=== PATIENT | male | born 1990 | race Caucasian/White ===

== ENCOUNTER → 2021-01-03 10:04 | Outpatient (CLI) | payer OTHER, MEDICAID, SELFPAY ==
[2021-01-03 11:48] LABS: COVID19 -Nasal RAPID Negative (Negative)
== END ==
PROVIDERS: PCP Student in an Organized Health Care Education/Training Program; Referring Provider Nurse Practitioner Family; Visit Provider Nurse Practitioner Family
DX: Z20.822 Contact with and (suspected) exposure to COVID-19 (principal); R05.9 Cough, unspecified
CPT/HCPCS: 87635

== ENCOUNTER 2023-12-25 12:55 | Emergency (ER) | payer SELFPAY ==
[2023-12-25] VITALS (9 sets, daily range): BP systolic 135–156; BP diastolic 74–85; PULSE 90–107; RESP 16–18; TEMP 36.6; O2SAT 96–99
[2023-12-25 14:09] LABS: Add Manual Diff / Slide Review NO; Basophils Absolute Auto 0 /uL (0-100); Basophils Percent Auto 0.6 % (0-2); Eosinophils Absolute Auto 0 /uL (0-450); Eosinophils Percent Auto 0.4 % (2-4); Hematocrit 39.5 % (41-53); Hemoglobin 13.4 g/dL (13.5-17.5); Lymphocytes Absolute Auto 1500 /uL (1100-4500); Lymphocytes Percent Auto 18.8 % (25-40); Mean Corpuscular HGB Conc 33.9 % (30-36); Mean Corpuscular Hemoglobin 33.2 PG (26-34); Mean Corpuscular Volume 97.9 fL (80-100); Monocytes Absolute Auto 600 /uL (0-900); Neutrophils Absolute Auto 5600 /uL (1500-7000); Neutrophils Percent Auto 72.2 % (50-75); Platelet Count 152 X10^3/uL (150-400); Red Blood Cell Count 4.04 X10^6/uL (4.5-5.9); Red Cell Distribution Width 12.9 % (11.6-14.8); White Blood Cell Count 7.7 X10^3/uL (4.5-11.0)
[2023-12-25 14:15] LABS: Alanine Aminotransferase 102 IU/L (<50); Albumin 3.8 g/dL (3.5-5.0); Albumin Globulin Ratio 0.8 (1.0-2.8); Alkaline Phosphatase 300 U/L (38-126); Aspartate Aminotransferase 272 IU/L (17-59); BUN Creatinine Ratio 8.5 (6-22); Bilirubin Total 4.9 mg/dL (0.2-1.3); Blood Urea Nitrogen 4 mg/dL (9-20); Calcium 8.6 mg/dL (8.4-10.2); Carbon Dioxide 25 mmol/L (22-32); Chloride 98 mmol/L (98-107); Estimated Glomerular Filt Rate > 60 mL/min (>60); Globulin 4.8 g/dL (1.7-4.1); Glucose 96 mg/dL (70-100); HEMOLYSIS < 15 (0-50); Lipase 68 U/L (23-300); Potassium 3.2 mmol/L (3.4-5.1); Sodium 136 mmol/L (137-145); Total Protein 8.6 g/dL (6.3-8.2)
--- NOTE | 2023-12-25 14:16 | ED.ABDPAIN ---
HPI - Abdominal Pain General Chief Complaint: Abdominal Pain Stated Complaint: Back Pain, Diff. Eliminating Time Seen by Provider: 12/25/23 14:16 Source: patient Mode of arrival: Ambulatory History of Present Illness HPI narrative: Patient is a 33-year-old male history of alcohol abuse comes into the ED from home for evaluation of multiple complaints. States that approximately 4 weeks ago he was lifting something heavy and felt like he strained/sprain his low back. Denies any bowel or urinary incontinence denies any numbness weakness tingling down bilateral lower extremities, denies any saddle paresthesias. States that he also feels like he is distended has had the increased bowel movements secondary to pain. He also states that he has been drinking alcohol daily and is been trying to stop over the past year. He denies any trauma or falls. States that he did drink a shot of liquor earlier today. No other symptoms at this time Related Data Previous Rx's Medication Instructions Recorded albuterol sulfate 90 mcg/actuation 1 puff inhalation Q6H PRN 12/19/20 aerosol inhaler shortness of breath or wheezing #8.5 grams hydroxyzine HCl 25 mg tablet 25 mg PO BID PRN anxiety #30 tabs 12/19/20 albuterol sulfate 90 mcg/actuation 2 puff inhalation Q6H PRN 01/03/21 aerosol inhaler shortness of breath or wheezing #6.7 grams benzonatate 100 mg capsule 100 mg PO BID PRN cough #20 caps 01/03/21 (Tesjames Scott) chlordiazepoxide HCl 25 mg capsule See Rx Instructions .Route 12/25/23 .COMPLEX PRN alcohol withdrawal 4 days #15 caps polyethylene glycol 3350 17 4 g PO DAILY 7 days #119 grams 12/25/23 gram/dose oral powder (Miralax) Allergies Allergy/AdvReac Type Severity Reaction Status Date / Time No Known Drug Allergies Allergy Unverified 12/25/23 13:15 Review of Systems Review of Systems Narrative: General: Denies fever, chills, weight loss HEENT: Denies headache, eye drainage, eye irritation, head trauma, sore throat, voice change Cardiovascular: Denies any chest pain, palpitations, shortness of breath, tachycardia Respiratory: Denies any shortness of breath, cough, wheeze, stridor GI/: Positive abdominal pain, denies nausea, vomiting, diarrhea, bright red blood per rectum, melanotic stools, urinary frequency, urinary retention, dysuria, hematuria MSK: Positive low back pain Skin: Denies any rashes, lesions, discoloration Neuro: Denies any headache, lightheadedness, dizziness, fainting, weakness Psych: Denies SI/HI Patient History Medical History (Updated 12/25/23 @ 16:56 by Terrell Godinez DO) PTSD (post-traumatic stress disorder) Migraines (~2019) Social History Smoking Status: Never smoker Smoking Status: Never smoker alcohol intake frequency: 3 or more drinks per day Alcohol type: hard liquor Substance Use Type: marijuana Exam Narrative Exam Narrative: General: Cooperative, comfortable, well-developed, not in acute distress HEENT: Normocephalic, atraumatic, PERRLA, normal sclera, eyelids normal, Neck: Active full range of motion, atraumatic Chest: Normal to inspection, negative crepitus, no overlying erythema ecchymosis Respiratory: Normal respiratory effort, not in acute respiratory distress, clear to auscultation bilaterally negative cough, wheeze, tachypnea, rhonchi, rales Cardiology: Regular rate rhythm negative gallop, murmur, rubs GI/: Normal to inspection, soft, nonrigid, no tenderness to palpation, exam deferred MSK: Full range of active range of motion of all 4 extremities, atraumatic, patient with mild tenderness to palpation of the coccyx region but no overlying erythema ecchymosis gross deformities, Skin: No rashes lesions noted Neuro: Alert awake oriented x3, moves all 4 extremities spontaneously, cranial nerves intact, able to answer all questions appropriately follows commands appropriately, patient able to stand bear weight ambulate slowed but unassisted here secondary to pain. Psych: Cooperative, negative suicidal or homicidal ideations Initial Vital Signs Initial Vital Signs: Vital Signs Temperature 98 F 12/25/23 13:08 Pulse Rate 97 H 12/25/23 13:08 Respiratory Rate 16 12/25/23 13:08 Blood Pressure 156/85 H 12/25/23 13:08 Pulse Oximetry 99 12/25/23 13:08 Oxygen Delivery Method Room Air 12/25/23 13:08 Course Orders Ordered: ED Orders 12/25/23 13:15 EKG-12 Lead Stat 12/25/23 13:16 Consult to PROSTHODONTIST/OWNER - Truck [employer] Mechanic Stat 12/25/23 13:43 Complete Blood Count AUTO DIFF Stat Comprehensive Metabolic Panel Stat Lipase Stat 12/25/23 14:37 CT abdomen pelvis w con Stat Ondansetron HCl (Ondansetron 4 Mg/2 Ml Inj) 4 mg IV NOW PRN PRN Reason: Nausea And Vomiting Ondansetron HCl (Ondansetron 4 Mg Odt) 4 mg PO NOW PRN PRN Reason: Nausea And Vomiting Discontinued Medications Dexamethasone (Dexamethasone 10 Mg/Ml Vial) 10 mg IV NOW ONE Stop: 12/25/23 14:38 Last Admin: 12/25/23 14:49 Dose: 10 mg Documented By: ETRE Diazepam (Diazepam 10 Mg/2 Ml Syringe) 2 mg IV NOW ONE Stop: 12/25/23 14:38 Last Admin: 12/25/23 14:49 Dose: 2 mg Documented By: TERE Sodium Chloride (Normal Saline 0.9%) 1,000 mls @ 1,000 mls/hr IV BOLUS ONE Stop: 12/25/23 15:50 Last Infusion: 12/25/23 16:31 Dose: Infused Documented By: Admin: 12/25/23 15:11 Dose: 1,000 mls/hr Documented By: TERE Ketorolac Tromethamine (Ketorolac 30 Mg/Ml Vial) 30 mg IV NOW ONE Stop: 12/25/23 14:38 Last Admin: 12/25/23 14:50 Dose: 30 mg Documented By: TERE Vital Signs Vital signs: Vital Signs - 8 hr 12/25/23 13:08 12/25/23 14:58 12/25/23 15:00 Temperature 98 F Pulse Rate 97 H 104 H 107 H Respiratory Rate 16 Blood Pressure 156/85 H Pulse Oximetry 99 96 97 Oxygen Delivery Method Room Air 12/25/23 15:03 12/25/23 15:03 12/25/23 15:25 Temperature Pulse Rate 103 H 96 H Respiratory Rate 18 Blood Pressure 138/80 Pulse Oximetry 96 96 Oxygen Delivery Method 12/25/23 15:25 12/25/23 15:30 12/25/23 15:30 Temperature Pulse Rate 95 H Respiratory Rate 16 Blood Pressure 141/81 H 135/74 Pulse Oximetry 96 Oxygen Delivery Method 12/25/23 16:06 12/25/23 16:06 12/25/23 16:30 Temperature Pulse Rate 90 Respiratory Rate Blood Pressure 143/74 H 141/76 H Pulse Oximetry 97 Oxygen Delivery Method 12/25/23 16:30 Temperature Pulse Rate 92 H Respiratory Rate Blood Pressure Pulse Oximetry 97 Oxygen Delivery Method MDM - Abdominal Pain Differential Diagnosis Differential diagnosis: Likely abdominal pain, constipation, diverticulitis, small bowel obstruction and other (Electrolyte abnormality) Lab Data 12/25/23 13:43 12/25/23 13:43 Labs: Lab Results 12/25/23 Range/Units 13:43 WBC 7.7 (4.5-11.0) X10^3/uL RBC 4.04 L (4.5-5.9) X10^6/uL Hgb 13.4 L (13.5-17.5) g/dL Hct 39.5 L (41-53) % MCV 97.9 (80-100) fL MCH 33.2 (26-34) PG MCHC 33.9 (30-36) % RDW 12.9 (11.6-14.8) % Plt Count 152 (150-400) X10^3/uL Neut % (Auto) 72.2 (50-75) % Lymph % (Auto) 18.8 L (25-40) % [place] % (Auto) 8.0 (3-14) % Eos % (Auto) 0.4 L (2-4) % Baso % (Auto) 0.6 (0-2) % Neut # (Auto) 5600 (0056-0726) /uL Lymph # (Auto) 1500 (2912-3120) /uL [place] # (Auto) 600 (0-900) /uL Eos # (Auto) 0 (0-450) /uL Baso # (Auto) 0 (0-100) /uL Sodium 136 L (137-145) mmol/L Potassium 3.2 L (3.4-5.1) mmol/L Chloride 98 (98-107) mmol/L Carbon Dioxide 25 (22-32) mmol/L BUN 4 L (9-20) mg/dL Creatinine 0.47 L (0.66-1.25) mg/dL Estimated GFR > 60 (>60) mL/min BUN/Creatinine Ratio 8.5 (6-22) Glucose 96 (70-100) mg/dL Calcium 8.6 (8.4-10.2) mg/dL Total Bilirubin 4.9 H (0.2-1.3) mg/dL AST 272 H (17-59) IU/L ALT 102 H (<50) IU/L Alkaline Phosphatase 300 H (38-126) U/L Total Protein 8.6 H (6.3-8.2) g/dL Albumin 3.8 (3.5-5.0) g/dL Globulin 4.8 H (1.7-4.1) g/dL Albumin/Globulin Ratio 0.8 L (1.0-2.8) Lipase 68 (23-300) U/L Point of care testing: Urine Dip Bedside Urine Glucose Negative Bedside Urine Bilirubin - Negative Bedside Urine Ketone +/- 5 Urine Specific [place] 1.005 Bedside Urine Occult Blood - Negative Bedside Urine pH 8.0 Bedside Urine Protein - Negative Bedside Urine Urobilinogen +/- 1mg Bedside Urine Nitrite - Negative Bedside Urine Leukocytes - Negative Esterase Imaging Data CT scan - abdomen/pelvis: Radiologist's Impression: [place] [address] CT Scan Report Signed Patient: Ernst Priest MR#: [id number] : 1990 Acct:[id number] Age/Sex: 33 / M Date of Service: 12/25/23 Loc: ED Accession Number: [id number] Procedure: CT abdomen pelvis w con Ordering Provider: Terrell Godinez D.O. PROCEDURE: CT ABDOMEN PELVIS W CON INDICATIONS: Abdominal pain, constipation TECHNIQUE: After the administration of intravenous contrast, axial sections acquired from the lung bases to the pubic symphysis. Coronal and sagittal reformats were performed. For radiation dose reduction, the following was used: automated exposure control, adjustment of mA and/or kV according to patient size. COMPARISON: None. FINDINGS: Image quality: Diagnostic. Lower Chest: No significant findings. ABDOMEN: Liver: Hepatomegaly measuring up to 23 cm and significant hepatic steatosis. Gallbladder: No radiopaque gallstones or wall thickening. Biliary ducts: No biliary dilation. Pancreas: No ductal dilation. Spleen: Mild splenomegaly measuring up to 15 cm. Adrenal Glands: No adrenal nodules. Kidneys and Ureters: No hydronephrosis. No solid mass. No complex renal cystic lesion which requires follow up. Nonobstructing 3 mm calcification at the inferior pole of the left kidney. Stomach and Bowel: Wall thickening is noted involving the ascending colon, may be secondary to portal colopathy.. Scattered diverticula without evidence of acute diverticulitis. Normal appendix. Peritoneum: Mild mesenteric stranding is noted No abnormal intraperitoneal fluid. No free air. Ventral Wall: No significant ventral hernia. Abdominal Nodes: Prominent enlarged lymph nodes are noted within the retroperitoneum. For example a 1.5 cm peripancreatic lymph node (2/39) and a 1.5 cm kimani hepatis lymph node (2/42). Irregularity and nodular thickening is noted along greatest fascia on the left measuring up to 9 mm (2/55). Prominent paraesophageal lymph node measuring up to 9 mm in short axis (2/16). Vessels: Aorta and inferior vena cava are normal in size. PELVIS: Pelvic Organs: Unremarkable. Bladder: No bladder wall thickening, accounting for underdistention. Pelvic Nodes: No enlarged lymph nodes. Miscellaneous: Bilateral fat containing inguinal hernias are seen. Bones: No aggressive osseous abnormality. Mild degenerative changes. IMPRESSION: 1. Significant hepatomegaly and hepatic steatosis. Cirrhosis is not excluded and clinical correlation is recommended. 2. Findings consistent with portal hypertension including splenomegaly and wall thickening of the ascending colon, likely portal colopathy. 3. Enlarged lymph nodes measure up to 1.5 cm, as described above. Nodular irregular thickening of Gerota's fascia on the left. Metastatic lymphadenopathy is not excluded. 4. Mesenteric stranding is present of uncertain etiology. May represent edema. MDM Narrative Medical decision making narrative: Patient is a 33-year-old male history of alcohol abuse presents to the ED for abdominal pain constipation and coccyx pain. This was nontraumatic occurred approximately 3-4 weeks after lifting something heavy. No red flags for cauda equina. Also requesting help with alcohol rehab. CT scan was significant for hepatomegaly with portal hypertension, however patient hemodynamically stable, lab work was without any leukocytosis however patient with elevated bilirubin and transaminitis consistent with patient's known history of alcohol abuse. I informed the patient that he will need follow up with PCP and GI for his hepatomegaly and most likely alcoholic cirrhosis/transaminitis. I will be sending him home with Librium given the fact that he is wanting to stop drinking alcohol, he was given resources by social work here. He verbalized understanding of this agrees to being discharged home outpatient follow-up Discharge Plan Departure Patient Disposition: Home Clinical Impression: Hepatomegaly, Alcoholic cirrhosis of liver without ascites Activity Restrictions/Additional Instructions: Please follow up with GI and your primary care doctor Please read the discharge instructions sheet carefully and bring all papers to all doctor follow-up visits, as it may contain information that your doctor may want to see. Disease processes change and evolve, if your symptoms worsen or if you develop any new symptoms that are concerning to you please return for evaluation. Your evaluation today does not show any evidence of any life-threatening/serious illnesses requiring admission to the hospital or surgery. Please follow-up with your doctor for re-evaluation in approximately 1 day. Seek immediate medical attention for any worrisome symptoms. Prescriptions: New chlordiazepoxide HCl 25 mg capsule See Rx Instructions .ROUTE .COMPLEX PRN (Reason: alcohol withdrawal) 4 Days Qty: 15 0RF Rx Instructions: 25 mg orally as needed ;Day 1: 50mg q6hDay 2: 25mg q6hDay 3: 25mg q55hQjv 4: 25mg at night polyethylene glycol 3350 [Miralax] 17 gram/dose powder 4 g PO DAILY 7 Days Qty: 119 0RF No Action benzonatate [Tessalon Perles] 100 mg capsule 100 mg PO BID PRN (Reason: cough) Qty: 20 0RF albuterol sulfate 90 mcg/actuation HFA aerosol inhaler 2 puff inhalation Q6H PRN (Reason: shortness of breath or wheezing) Qty: 6.7 0RF albuterol sulfate 90 mcg/actuation HFA aerosol inhaler 1 puff inhalation Q6H PRN (Reason: shortness of breath or wheezing) Qty: 8.5 11RF hydroxyzine HCl 25 mg tablet 25 mg PO BID PRN (Reason: anxiety) Qty: 30 0RF Referrals: Marcus Dyson MD [Primary Care Provider] - Stand Alone Forms: Patient Portal/API
--- NOTE | 2023-12-25 14:37 | DI.CT.S_ITS ---
PROCEDURE: CT ABDOMEN PELVIS W CON INDICATIONS: Abdominal pain, constipation TECHNIQUE: After the administration of intravenous contrast, axial sections acquired from the lung bases to the pubic symphysis. Coronal and sagittal reformats were performed. For radiation dose reduction, the following was used: automated exposure control, adjustment of mA and/or kV according to patient size. COMPARISON: None. FINDINGS: Image quality: Diagnostic. Lower Chest: No significant findings. ABDOMEN: Liver: Hepatomegaly measuring up to 23 cm and significant hepatic steatosis. Gallbladder: No radiopaque gallstones or wall thickening. Biliary ducts: No biliary dilation. Pancreas: No ductal dilation. Spleen: Mild splenomegaly measuring up to 15 cm. Adrenal Glands: No adrenal nodules. Kidneys and Ureters: No hydronephrosis. No solid mass. No complex renal cystic lesion which requires follow up. Nonobstructing 3 mm calcification at the inferior pole of the left kidney. Stomach and Bowel: Wall thickening is noted involving the ascending colon, may be secondary to portal colopathy.. Scattered diverticula without evidence of acute diverticulitis. Normal appendix. Peritoneum: Mild mesenteric stranding is noted No abnormal intraperitoneal fluid. No free air. Ventral Wall: No significant ventral hernia. Abdominal Nodes: Prominent enlarged lymph nodes are noted within the retroperitoneum. For example a 1.5 cm peripancreatic lymph node (2/39) and a 1.5 cm kimani hepatis lymph node (2/42). Irregularity and nodular thickening is noted along greatest fascia on the left measuring up to 9 mm (2/55). Prominent paraesophageal lymph node measuring up to 9 mm in short axis (2/16). Vessels: Aorta and inferior vena cava are normal in size. PELVIS: Pelvic Organs: Unremarkable. Bladder: No bladder wall thickening, accounting for underdistention. Pelvic Nodes: No enlarged lymph nodes. Miscellaneous: Bilateral fat containing inguinal hernias are seen. Bones: No aggressive osseous abnormality. Mild degenerative changes. IMPRESSION: 1. Significant hepatomegaly and hepatic steatosis. Cirrhosis is not excluded and clinical correlation is recommended. 2. Findings consistent with portal hypertension including splenomegaly and wall thickening of the ascending colon, likely portal colopathy. 3. Enlarged lymph nodes measure up to 1.5 cm, as described above. Nodular irregular thickening of Gerota's fascia on the left. Metastatic lymphadenopathy is not excluded. 4. Mesenteric stranding is present of uncertain etiology. May represent edema. Dictated by: Servando Costa M.D. on 12/25/2023 at 15:34 Approved by: Servando Costa M.D. on 12/25/2023 at 15:43
[2023-12-25] MEDS: diazePAM 10 MG/2 ML SYRINGE 2 MG IV (14:49)
[2023-12-25] MEDS: DEXAMETHASONE 10 MG/ML VIAL IV (14:49)
[2023-12-25] MEDS: KETOROLAC 30 MG/ML VIAL IV (14:50)
--- NOTE | 2023-12-25 15:07 | EKG_ITS ---
[facility] [address] [place] [id number] Test Date: 2023-12-25 Pat Name: Ernst Priest Department: [facility] Room: Gender: Male Plate Gauger: CRISTOFER : 1990 Requested By: Order Number: [id number] Reading MD: Jalil Lozano MD Measurements Intervals [place] Rate: 101 P: 36 W[place]: 134 QRS: 29 QRSD: 84 T: -12 QT: 376 QTc: 487 Interpretive Statements Sinus tachycardia Electronically Signed On 12-26-2023 7:58:10 PDT by Jalil Lozano MD
[2023-12-25] MEDS: SODIUM CHLORIDE 0.9% 1,000 ML 1000 ML IV (15:11)
--- NOTE | 2023-12-25 16:05 | CM.SWNOTE ---
ED PUTTER IN Assessment PUTTER IN - Telephone Quotation Clerk Assessment PUTTER IN/Telephone Quotation Clerk Assessment Time Spent with Patient Start date 12/25/23 Visit Start Time 14:30 End date 12/25/23 Visit End Time 15:00 Total time Care Management spent on 30 minutes patient visit-in minutes Substance Abuse Screening Include Onset, Duration, Intensity Presenting Problem Patient presents to ED due to concern for increase in pain in lower back and rectum. Patient also endorses concern for his heavy ETOH use in the last year. Patient states that he has been tapering off of ETOH use but has been drinking about half of 1/5 of Whiskey each day. Patient is motivated to stop drinking. Precipitating Event(s) Patient states he lost his well paying job about a year ago and has been depressed and anxious about finances in the last year and drinking more as well. Patient endorses that he is the only one working and he feels the burden to financially provide and keep a roof over his family's head. Patient states that he has been experience an increase in lower back pain in recent weeks. Patient states he is unable to take time away from work to address his drinking. Patient also states that his spouse's parents are terminally ill and that has been an added stressor to his and their family. Patient Strengths Patient's mother is a financial support during this time, patient has support from his and patient is motivated to feel better and be present for his family. Current Behavioral Health Provider(s) Patient goes to [facility], Provider, Ph. # Counseling in [place] (Ph . # [phone]), patient states he goes there every two weeks for medication management for his Anxiety and Depression and therapy. Family Hx of Behavioral Abuse Patient states he does not have the best relationship with his mother and has not seen her for 20 years. Rehab Facilities? ((Date(s), Location(s) Patient denies hx of rehab. ) History of Withdrawal? Seizures? Patient denies hx of withdrawals or seizures. Patient presents with shakiness but states that he is shaky because he did not take his Sertraline today. Longest Period of Sobriety Patient states he was sober for about 2-3 years when he was working a lot in recent years. Psychosocial information & Support Patient is 33 y/o male who Systems lives with his , almost 2 y/o daughter, and 7 y/o son in [place]. Patient has his and friends as support and his mother has been a financial support assisting with rent. 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 Legal Concerns Legal Matters - Outstanding Issues None reported Mental Status Orientation (Person/Place/Time) A/Ox4 Stated Mood in pain Affect (Congruent with Mood?) euthymic, distressed due to pain, full range, congruent with mood. Thought Content - Specify/Describe None reported Obsessions, Delusions, Hallucinations Thought Processes (Jsdzvnp-Gkyojzzs-Pmtr None reported Vzqvgckb-Usqluaxa-Sxlyqqttsz- Zdqhxdrvcthavj-Shiwjmq-Cioasgdiidau- Thought Blocking) Speech (Myfsih-Wgwm-Jzidnio-Rapid-Soft- normal Loud-Pressured) Motor (Qrgujl-Utennikrm-Eajn-Other) normal Insight (Trns-Jtmw-Mlpe/Limited) fair Judgement (Nsth-Ahul-Jjqz/Limited) fair Impulse Control (Adequate-Impaired) adequate Memory (Cnrbwanwe-Oedcuz-Nmcoiw, intact, not formally assessed Impaired-Intact) Concentration (Intact-Impaired) intact Attention (Intact-Impaired) intact Behavior (Appropriate-Inappropriate) appropriate Risk Assessment Suicidal Ideation (Plan) No Homicidal Ideation (Plan) No Intervention Intervention PUTTER IN enters room to meet with patient, present in room is patient's and 2 y/o daughter. Patient endorses consent for them to be present . Patient's and daughter eventually leave to strip picker other child. Patient endorses concern for his drinking, increase in financial stress, anxiety and depression while carrying the burden of being the only one working. Patient endorses concern about managing rent and car payments and states that his is not working right now. Patient states he doesn't believe he can take time away from work to address his drinking. PUTTER IN discusses that patient's current MH provider will be able to address patient's JODEE and provide services and resources. Patient states he has not discussed his JODEE with [facility] yet, PUTTER IN encourages patient to do so. PUTTER IN provides patient with AA resources, other outpatient and detox JODEE resources, rental and utility assistance resources and subsidized childcare resources for his daughter. Patient endorses preference to d/c to home to be with his family and would like support to get through withdrawal symptoms if they arise. It is the opinion of this PUTTER IN that patient is safe to d/c to home upon medical clearance. PUTTER IN reviews patient with ED provider who indicates agreement and understanding, awaiting medical clearance at this time. Plan RA Plan Patient to f/u with MH provider to address JODEE services, patient to f/u with resources provided. Patient likely to d/c to home upon medical clearance. Anita Tapia, PERSONNEL COORDINATOR
== END 2023-12-25 17:11 | disposition home or self-care (01) ==
PROVIDERS: Emergency Provider Student in an Organized Health Care Education/Training Program; PCP Student in an Organized Health Care Education/Training Program
DX: K70.30 Alcoholic cirrhosis of liver without ascites (principal); R16.0 Hepatomegaly, not elsewhere classified; R10.9 Unspecified abdominal pain; R00.0 Tachycardia, unspecified; K59.00 Constipation, unspecified
CPT/HCPCS: 36415; 74177; 80053; 81003; 83690; 85025; 93005; 96361; 96374; 96375; 99284; J1100; J1885; J3360; Q9967

== ENCOUNTER 2025-02-07 10:45 | Emergency (ER) | payer OTHER, MEDICAID, SELFPAY ==
[2025-02-07] VITALS (97 sets, daily range): BP systolic 79–141; BP diastolic 37–80; PULSE 92–120; RESP 12–23; TEMP 36.6–37.4; O2SAT 91–100; BMI 32.6
--- NOTE | 2025-02-07 10:57 | EKG_ITS ---
[facility] [address] [address] [address] Test Date: 2025-02-07 Pat Name: Ernst Priest Department: Room: Gender: Male Assignment Officer: ANDREW : 1990 Requested By: Order Number: [id number] Reading MD: Jalil Lozano MD Measurements Intervals [place] Rate: 114 P: 14 [place]: 122 QRS: 49 QRSD: 84 T: 8 QT: 334 QTc: 460 Interpretive Statements Sinus tachycardia Electronically Signed On 02-08-2025 8:03:34 PST by Jalil Lozano MD
--- NOTE | 2025-02-07 11:02 | DI.RAD.S_ITS ---
PROCEDURE: XR CHEST 1V INDICATIONS: chest pain TECHNIQUE: One view of the chest was acquired. COMPARISON: None. FINDINGS: Surgical changes and devices: None. Lungs and pleura: Lungs are clear. No pleural effusions or pneumothorax. Mediastinum: Mediastinal contours appear normal. Heart size is normal. Bones and chest wall: No suspicious bony lesions. Overlying soft tissues appear unremarkable. IMPRESSION: No acute cardiopulmonary abnormality is seen. Dictated by: Bakari Kim M.D. on 02/07/2025 at 10:53 Approved by: Bakari Kim M.D. on 02/07/2025 at 10:54
[2025-02-07 11:45] LABS: Add Manual Diff / Slide Review NO; Hematocrit 22.3 % (41-53); Hemoglobin 7.6 g/dL (13.5-17.5); Lymphocytes Absolute Auto 3400 /uL (1100-4500); Mean Corpuscular HGB Conc 33.9 % (30-36); Mean Corpuscular Hemoglobin 32.6 PG (26-34); Mean Corpuscular Volume 96.2 fL (80-100); Platelet Count 101 X10^3/uL (150-400)
--- NOTE | 2025-02-07 11:54 | ED_ITS ---
HPI - Alcohol General Chief Complaint: Toxicology Problem Stated Complaint: Light headed Time Seen by Provider: 02/07/25 11:01 Source: patient Mode of arrival: Family Vehicle History of Present Illness HPI narrative: Patient is a 34-year-old male history of alcohol abuse presenting today with dizziness lightheadedness. He reports that he has been vomiting bright red blood for couple of days not actively vomiting now but he has had some dark stools as well. He has not had any alcohol intake for last 48 hours. He says the 1st day he feels like he did go through withdrawal but last night was a little bit better but he is still feeling a little bit anxious. No significant abdominal pain. He is noted to be tachycardic and slightly hypotensive. He reports he drinks 2 beers during the week and then on weekends drinks beer and hard liquor. Related Data Previous Rx's ?Medication ?Instructions ?Recorded albuterol sulfate 90 mcg/actuation 1 puff inhalation Q 6H PRN 12/19/20 aerosol inhaler shortness of breath or wheez ing #8.5 grams hydroxyzine HCl 25 mg tablet 25 mg PO BID PRN anxiety #30 tabs 12/19/20 albuterol sulfate 90 mcg/actuation 2 puff inhalation Q 6H PRN 01/03/21 aerosol inhaler shortness of breath or wheez ing #6.7 grams benzonatate 100 mg capsule 100 mg PO BID PRN cough #20 caps 01/03/21 (Logan Scott) Allergies Allergy/AdvReac Type Severity Reaction Status Date / Time No Known Drug Allergies Allergy Verified 02/07/25 10:49 Patient History Medical History PTSD (post-traumatic stress disorder) Migraines (~2018) Social History Smoking Status: Never smoker Smoking Status: Never smoker alcohol intake frequency: 3 or more drinks per day Alcohol type: beer and hard liquor Exam Initial Vital Signs Initial Vital Signs: Vital Signs Temperature 97.9 F 02/07/25 10:49 Pulse Rate 120 H 02/07/25 10:49 Respiratory Rate 18 02/07/25 10:49 Blood Pressure 116/58 L 02/07/25 10:49 Pulse Oximetry 99 02/07/25 10:49 Oxygen Delivery Method Room Air 02/07/25 10:49 GENERAL: Alert pleasant 84-year-old male and in no acute distress. HEENT: Head atraumatic,EOMI, pupils reactive, face symmetric, moist mucous membranes CARDIOVASCULAR: Tachycardic regular RESPIRATORY: Breath sounds equal bilaterally, no wheezes rales or rhonchi. ABDOMEN: Soft, nontender. Normoactive bowel sounds all 4 quadrants. No guarding or rebound. RECTAL: Guaiac positive no gross melena or bright red blood EXTREMITIES: Normal range of motion, no clubbing or edema. Neurovascularly intact NEUROLOGICAL: Alert and oriented x4.Normal gait and speech. SKIN: Warm, dry, no laceration, no petechiae, no rashes or lesions. Course Orders Ordered: ED Orders 02/07/25 11:02 XR chest 1V Stat EKG-12 Lead Stat 02/07/25 11:35 Acetaminophen Stat Complete Blood Count AUTO DIFF Stat Comprehensive Metabolic Panel Stat ETOH [Ethanol (ETOH)] Stat Lipase Stat Magnesium Stat PTT Partial Thromboplastin Schuyler Stat Prothrombin Time INR Stat Salicylate Stat Troponin I Stat 02/07/25 12:00 CT angio Abd/Pel GI Bleed Stat 02/07/25 12:01 PRBC [Packed Cells] Stat Type and Screen Stat 02/07/25 12:21 Lactate (Lactic Acid) Stat 02/07/25 14:30 Urine Drug Screen, Rapid Stat Octreotide Acetate 500 mcg/ (Sodium Chloride) 101 mls @ 5.05 mls/hr IV CONT KHALIDA; Protocol Last Admin: 02/07/25 12:16 Dose: 25 mcg/hr, 5.05 mls/hr Documented By: DINORAH Discontinued Medications Sodium Chloride (Normal Saline 0.9%) 1,000 mls @ 1,000 mls/hr IV BOLUS ONE Stop: 02/07/25 12:58 Last Infusion: 02/07/25 13:16 Dose: Infused Documented By: Admin: 02/07/25 12:14 Dose: 1,000 mls/hr Documented By: DINORAH Lorazepam (Lorazepam 2 Mg/Ml Inj) 1 mg IV NOW ONE Stop: 02/07/25 13:31 Last Admin: 02/07/25 13:51 Dose: 1 mg Documented By: FELIPE Octreotide Acetate (Octreotide 100 Mcg/Ml Vial) 50 mcg IV NOW ONE Stop: 02/07/25 12:00 Last Admin: 02/07/25 12:18 Dose: 50 mcg Documented By: DINORAH Pantoprazole Sodium (Pantoprazole 40 Mg Vial) 80 mg IV NOW ONE Stop: 02/07/25 12:00 Last Admin: 02/07/25 12:19 Dose: 80 mg Documented By: DINORAH Vital Signs Vital signs: Vital Signs - 8 hr 02/07/25 10:49 02/07/25 11:03 02/07/25 11:30 Temperature 97.9 F Pulse Rate 120 H 115 H 96 H Respiratory Rate 18 17 Blood Pressure 116/58 L Pulse Oximetry 99 99 Oxygen Delivery Method Room Air 02/07/25 11:31 02/07/25 11:31 02/07/25 11:50 Temperature Pulse Rate 93 H Respiratory Rate 19 Blood Pressure 92/51 L 97/50 L Pulse Oximetry 97 Oxygen Delivery Method 02/07/25 11:50 02/07/25 12:00 02/07/25 12:00 Temperature Pulse Rate 99 H 101 H Respiratory Rate 15 21 Blood Pressure 79/37 L Pulse Oximetry 98 99 Oxygen Delivery Method 02/07/25 12:04 02/07/25 12:04 02/07/25 12:05 Temperature Pulse Rate 101 H Respiratory Rate 17 Blood Pressure 93/55 L 97/52 L Pulse Oximetry 100 Oxygen Delivery Method 02/07/25 12:05 02/07/25 12:10 02/07/25 12:10 Temperature Pulse Rate 100 H 100 H Respiratory Rate 17 12 Blood Pressure 94/55 L Pulse Oximetry 100 100 Oxygen Delivery Method 02/07/25 12:15 02/07/25 12:15 02/07/25 12:21 Temperature Pulse Rate 99 H Respiratory Rate 20 Blood Pressure 99/51 L 103/55 L Pulse Oximetry 100 Oxygen Delivery Method 02/07/25 12:21 02/07/25 12:25 02/07/25 12:25 Temperature Pulse Rate 99 H 92 H Respiratory Rate 13 13 Blood Pressure 117/55 L Pulse Oximetry 97 100 Oxygen Delivery Method 02/07/25 12:30 02/07/25 12:30 02/07/25 12:35 Temperature Pulse Rate 100 H Respiratory Rate 14 Blood Pressure 102/57 L 103/55 L Pulse Oximetry 98 Oxygen Delivery Method 02/07/25 12:35 02/07/25 12:54 02/07/25 12:54 Temperature Pulse Rate 103 H 106 H Respiratory Rate 22 16 Blood Pressure 121/63 Pulse Oximetry 96 98 Oxygen Delivery Method 02/07/25 12:55 02/07/25 12:55 02/07/25 13:00 Temperature Pulse Rate 105 H Respiratory Rate 18 Blood Pressure 110/57 L 108/57 L Pulse Oximetry 100 Oxygen Delivery Method 02/07/25 13:00 02/07/25 13:05 02/07/25 13:05 Temperature Pulse Rate 104 H 105 H Respiratory Rate 16 19 Blood Pressure 117/55 L Pulse Oximetry 99 98 Oxygen Delivery Method 02/07/25 13:10 02/07/25 13:10 02/07/25 13:15 Temperature Pulse Rate 105 H 107 H Respiratory Rate 17 16 Blood Pressure 112/56 L Pulse Oximetry 98 99 Oxygen Delivery Method 02/07/25 13:15 02/07/25 13:20 02/07/25 13:20 Temperature Pulse Rate 106 H Respiratory Rate 16 Blood Pressure 93/48 L 108/58 L Pulse Oximetry 98 Oxygen Delivery Method 02/07/25 13:25 02/07/25 13:25 02/07/25 13:30 Temperature 98.2 F Pulse Rate 104 H 105 H Respiratory Rate 15 16 Blood Pressure 108/58 L 108/58 L Pulse Oximetry 99 Oxygen Delivery Method 02/07/25 13:30 02/07/25 13:30 02/07/25 13:35 Temperature Pulse Rate 104 H Respiratory Rate 13 Blood Pressure 107/57 L 97/54 L Pulse Oximetry 98 Oxygen Delivery Method 02/07/25 13:35 02/07/25 13:40 02/07/25 13:40 Temperature Pulse Rate 106 H 106 H Respiratory Rate 19 19 Blood Pressure 115/58 L Pulse Oximetry 100 100 Oxygen Delivery Method 02/07/25 13:45 02/07/25 13:45 02/07/25 13:45 Temperature 98.6 F Pulse Rate 105 H 105 H Respiratory Rate 20 18 Blood Pressure 99/55 L 99/55 L Pulse Oximetry 98 Oxygen Delivery Method 02/07/25 13:50 02/07/25 13:50 02/07/25 13:55 Temperature Pulse Rate 107 H 104 H Respiratory Rate 21 19 Blood Pressure 91/50 L Pulse Oximetry 99 99 Oxygen Delivery Method 02/07/25 13:55 02/07/25 14:00 02/07/25 14:00 Temperature Pulse Rate 104 H Respiratory Rate 12 Blood Pressure 92/50 L 94/54 L Pulse Oximetry 97 Oxygen Delivery Method 02/07/25 14:05 02/07/25 14:05 02/07/25 14:10 Temperature Pulse Rate 105 H Respiratory Rate 18 Blood Pressure 105/62 105/57 L Pulse Oximetry 98 Oxygen Delivery Method 02/07/25 14:10 02/07/25 14:15 02/07/25 14:15 Temperature Pulse Rate 104 H 106 H Respiratory Rate 15 21 Blood Pressure 120/56 L Pulse Oximetry 97 97 Oxygen Delivery Method 02/07/25 14:20 02/07/25 14:20 02/07/25 14:25 Temperature Pulse Rate 106 H Respiratory Rate 13 Blood Pressure 113/54 L 104/60 Pulse Oximetry 99 Oxygen Delivery Method 02/07/25 14:25 02/07/25 14:30 02/07/25 14:30 Temperature Pulse Rate 105 H 108 H Respiratory Rate 21 17 Blood Pressure 110/60 Pulse Oximetry 100 99 Oxygen Delivery Method 02/07/25 14:34 02/07/25 14:34 02/07/25 14:35 Temperature 98.4 F Pulse Rate 106 H 106 H Respiratory Rate 16 21 Blood Pressure 111/59 L 111/59 L Pulse Oximetry 97 Oxygen Delivery Method 02/07/25 14:35 02/07/25 14:40 02/07/25 14:40 Temperature Pulse Rate 105 H 105 H Respiratory Rate 23 21 Blood Pressure 112/59 L Pulse Oximetry 97 99 Oxygen Delivery Method 02/07/25 14:45 02/07/25 14:45 02/07/25 14:50 Temperature Pulse Rate 105 H 107 H Respiratory Rate 16 21 Blood Pressure 110/59 L Pulse Oximetry 99 96 Oxygen Delivery Method 02/07/25 14:50 02/07/25 14:55 02/07/25 14:55 Temperature Pulse Rate 106 H Respiratory Rate 18 Blood Pressure 118/58 L 114/60 Pulse Oximetry 98 Oxygen Delivery Method 02/07/25 15:00 02/07/25 15:00 02/07/25 15:05 Temperature Pulse Rate 105 H Respiratory Rate 20 Blood Pressure 108/62 109/59 L Pulse Oximetry 97 Oxygen Delivery Method 02/07/25 15:05 02/07/25 15:10 02/07/25 15:10 Temperature Pulse Rate 105 H 105 H Respiratory Rate 14 21 Blood Pressure 117/58 L Pulse Oximetry 98 96 Oxygen Delivery Method 02/07/25 15:15 02/07/25 15:15 02/07/25 15:20 Temperature Pulse Rate 106 H Respiratory Rate 20 Blood Pressure 110/60 122/63 Pulse Oximetry 97 Oxygen Delivery Method 02/07/25 15:20 02/07/25 15:22 02/07/25 15:25 Temperature 99.2 F Pulse Rate 103 H 104 H Respiratory Rate 22 18 Blood Pressure 122/64 115/63 Pulse Oximetry 96 Oxygen Delivery Method 02/07/25 15:25 02/07/25 15:30 02/07/25 15:30 Temperature Pulse Rate 103 H 104 H Respiratory Rate 17 18 Blood Pressure 114/58 L Pulse Oximetry 97 98 Oxygen Delivery Method 02/07/25 15:34 02/07/25 15:35 02/07/25 15:35 Temperature 99.2 F Pulse Rate 105 H 96 H Respiratory Rate 19 16 Blood Pressure 115/63 115/57 L Pulse Oximetry 97 Oxygen Delivery Method 02/07/25 15:35 02/07/25 15:36 02/07/25 15:40 Temperature 99.2 F Pulse Rate 105 H 96 H Respiratory Rate 19 18 Blood Pressure 115/63 131/61 Pulse Oximetry 96 Oxygen Delivery Method 02/07/25 15:40 02/07/25 15:45 02/07/25 15:45 Temperature Pulse Rate 103 H 104 H Respiratory Rate 20 19 Blood Pressure 130/60 Pulse Oximetry 95 96 Oxygen Delivery Method 02/07/25 15:49 02/07/25 15:49 02/07/25 15:50 Temperature 99.3 F 99.2 F Pulse Rate 103 H 104 H Respiratory Rate 20 16 Blood Pressure 130/60 111/55 L Pulse Oximetry 95 Oxygen Delivery Method 02/07/25 15:50 02/07/25 15:55 02/07/25 15:55 Temperature Pulse Rate 105 H 102 H Respiratory Rate 18 19 Blood Pressure 115/59 L Pulse Oximetry 95 95 Oxygen Delivery Method 02/07/25 16:00 02/07/25 16:00 02/07/25 16:04 Temperature Pulse Rate 103 H 101 H Respiratory Rate 12 16 Blood Pressure 106/51 L Pulse Oximetry 97 94 Oxygen Delivery Method 02/07/25 16:05 02/07/25 16:05 02/07/25 16:10 Temperature Pulse Rate 102 H Respiratory Rate 13 Blood Pressure 109/59 L 112/59 L Pulse Oximetry 97 Oxygen Delivery Method 02/07/25 16:10 02/07/25 16:15 02/07/25 16:15 Temperature Pulse Rate 102 H 102 H Respiratory Rate 14 20 Blood Pressure 121/65 Pulse Oximetry 97 95 Oxygen Delivery Method 02/07/25 16:20 02/07/25 16:20 02/07/25 16:25 Temperature Pulse Rate 102 H Respiratory Rate 18 Blood Pressure 110/62 123/57 L Pulse Oximetry 96 Oxygen Delivery Method 02/07/25 16:25 02/07/25 16:30 02/07/25 16:30 Temperature Pulse Rate 101 H 101 H Respiratory Rate 20 14 Blood Pressure 116/55 L Pulse Oximetry 96 98 Oxygen Delivery Method 02/07/25 16:35 02/07/25 16:35 02/07/25 16:40 Temperature Pulse Rate 101 H Respiratory Rate 22 Blood Pressure 112/53 L 117/58 L Pulse Oximetry 96 Oxygen Delivery Method 02/07/25 16:40 02/07/25 16:45 02/07/25 16:45 Temperature Pulse Rate 102 H 101 H Respiratory Rate 14 20 Blood Pressure 113/56 L Pulse Oximetry 99 97 Oxygen Delivery Method 02/07/25 16:57 02/07/25 16:57 02/07/25 17:00 Temperature Pulse Rate 108 H Respiratory Rate 18 Blood Pressure 141/64 H 125/62 Pulse Oximetry Oxygen Delivery Method 02/07/25 17:00 02/07/25 17:04 02/07/25 17:05 Temperature Pulse Rate 103 H 103 H Respiratory Rate 18 13 Blood Pressure 131/65 Pulse Oximetry 97 98 Oxygen Delivery Method 02/07/25 17:05 02/07/25 17:10 02/07/25 17:10 Temperature Pulse Rate 103 H 106 H Respiratory Rate 19 19 Blood Pressure 128/67 Pulse Oximetry 96 98 Oxygen Delivery Method 02/07/25 17:15 02/07/25 17:15 02/07/25 17:20 Temperature Pulse Rate 103 H 104 H Respiratory Rate 16 21 Blood Pressure 125/69 Pulse Oximetry 99 99 Oxygen Delivery Method 02/07/25 17:20 02/07/25 17:25 02/07/25 17:25 Temperature Pulse Rate 104 H Respiratory Rate 16 Blood Pressure 117/65 124/66 Pulse Oximetry 97 Oxygen Delivery Method 02/07/25 17:30 02/07/25 17:30 02/07/25 17:35 Temperature Pulse Rate 103 H 104 H Respiratory Rate 19 17 Blood Pressure 117/66 Pulse Oximetry 96 98 Oxygen Delivery Method 02/07/25 17:35 02/07/25 17:40 02/07/25 17:40 Temperature Pulse Rate 104 H Respiratory Rate 21 Blood Pressure 128/68 129/69 Pulse Oximetry 98 Oxygen Delivery Method MDM - Alcohol Lab Data 02/07/25 11:35 02/07/25 11:35 Labs: Lab Results 02/07/25 02/07/25 02/07/25 Range/Units 11:05 11:35 12:01 WBC 16.9 H (4.5-11.0) X10^3/uL RBC 2.31 L (4.5-5.9) X10^6/uL Hgb 7.6 L (13.5-17.5) g/dL Hct 22.3 L (41-53) % MCV 96.2 (80-100) fL MCH 32.6 (26-34) PG MCHC 33.9 (30-36) % RDW 13.3 (11.6-14.8) % Plt Count 101 L (150-400) X10^3/uL Neut % (Auto) 68.1 (50-75) % Lymph % (Auto) 20.2 L (25-40) % [place] % (Auto) 9.7 (3-14) % Eos % (Auto) 0.7 L (2-4) % Baso % (Auto) 1.3 (0-2) % Neut # (Auto) 71072 H (8810-0208) /uL Lymph # (Auto) 3400 (6739-3519) /uL [place] # (Auto) 1600 H (0-900) /uL Eos # (Auto) 100 (0-450) /uL Baso # (Auto) 200 H (0-100) /uL PT 19.3 H (9.4-12.5) SECONDS INR 1.7 H (0.9-1.3) APTT 23 L (25.1-36.5) SECONDS Sodium 129 L (137-145) mmol/L Potassium 4.0 (3.4-5.1) mmol/L Chloride 99 (98-107) mmol/L Carbon Dioxide 19 L (22-32) mmol/L BUN 27 H (9-20) mg/dL Creatinine 0.68 (0.66-1.25) mg/dL Estimated GFR > 60 (>60) mL/min BUN/Creatinine Ratio 39.7 H (6-22) Glucose 138 H (70-99) mg/dL POC Whole Bld Glucose 120 H (70-99) mg/dL Lactate (0.7-2.1) mmol/L Calcium 8.3 L (8.4-10.2) mg/dL Magnesium 1.7 (1.6-2.3) mg/dL Total Bilirubin 1.4 H (0.2-1.3) mg/dL AST 81 H (17-59) IU/L ALT 53 H (<50) IU/L Alkaline Phosphatase 62 (38-126) U/L Troponin I < 0.012 (0.01-0.034) ng/mL Total Protein 6.1 L (6.3-8.2) g/dL Albumin 3.2 L (3.5-5.0) g/dL Globulin 2.9 (1.7-4.1) g/dL Albumin/Globulin Ratio 1.1 (1.0-2.8) Lipase 67 (23-300) U/L Salicylates < 1.0 (<20) mg/dL U Opiates 300ng/mL cut (Negative) Ur Oxycodone Screen (Negative) Urine Methadone Screen (Negative) Acetaminophen < 10 (10-30) ug/mL Ur Barbiturates Screen (Negative) U Tricyclic Antidepress (Negative) Ur Phencyclidine Scrn (Negative) Ur Amphetamines Screen (Negative) U Methamphetamines Scrn (Negative) Ur MDMA Scrn (Ecstasy) (Negative) U Benzodiazepines Scrn (Negative) Urine Cocaine Screen (Negative) U Marijuana (THC) Screen (Negative) Urine pH (Normal) Urine Specific [place] (Normal) Ethyl Alcohol 25 H (<10) mg/dL Ur Creatinine (Normal) Blood Type A Positive Antibody Screen Negative Crossmatch See Detail 02/07/25 02/07/25 02/07/25 Range/Units 12:21 14:24 14:30 WBC (4.5-11.0) X10^3/uL RBC (4.5-5.9) X10^6/uL Hgb (13.5-17.5) g/dL Hct (41-53) % MCV (80-100) fL MCH (26-34) PG MCHC (30-36) % RDW (11.6-14.8) % Plt Count (150-400) X10^3/uL Neut % (Auto) (50-75) % Lymph % (Auto) (25-40) % [place] % (Auto) (3-14) % Eos % (Auto) (2-4) % Baso % (Auto) (0-2) % Neut # (Auto) (4101-0928) /uL Lymph # (Auto) (0159-2479) /uL [place] # (Auto) (0-900) /uL Eos # (Auto) (0-450) /uL Baso # (Auto) (0-100) /uL PT (9.4-12.5) SECONDS INR (0.9-1.3) APTT (25.1-36.5) SECONDS Sodium (137-145) mmol/L Potassium (3.4-5.1) mmol/L Chloride (98-107) mmol/L Carbon Dioxide (22-32) mmol/L BUN (9-20) mg/dL Creatinine (0.66-1.25) mg/dL Estimated GFR (>60) mL/min BUN/Creatinine Ratio (6-22) Glucose (70-99) mg/dL POC Whole Bld Glucose (70-99) mg/dL Lactate 3.8 H 2.6 H (0.7-2.1) mmol/L Calcium (8.4-10.2) mg/dL Magnesium (1.6-2.3) mg/dL Total Bilirubin (0.2-1.3) mg/dL AST (17-59) IU/L ALT (<50) IU/L Alkaline Phosphatase (38-126) U/L Troponin I (0.01-0.034) ng/mL Total Protein (6.3-8.2) g/dL Albumin (3.5-5.0) g/dL Globulin (1.7-4.1) g/dL Albumin/Globulin Ratio (1.0-2.8) Lipase (23-300) U/L Salicylates (<20) mg/dL U Opiates 300ng/mL cut Negative (Negative) Ur Oxycodone Screen Negative (Negative) Urine Methadone Screen Negative (Negative) Acetaminophen (10-30) ug/mL Ur Barbiturates Screen Negative (Negative) U Tricyclic Antidepress Negative (Negative) Ur Phencyclidine Scrn Negative (Negative) Ur Amphetamines Screen Negative (Negative) U Methamphetamines Scrn Negative (Negative) Ur MDMA Scrn (Ecstasy) Negative (Negative) U Benzodiazepines Scrn Negative (Negative) Urine Cocaine Screen Negative (Negative) U Marijuana (THC) Screen Positive H (Negative) Urine pH Normal (Normal) Urine Specific [place] Normal (Normal) Ethyl Alcohol (<10) mg/dL Ur Creatinine Normal (Normal) Blood Type Antibody Screen Crossmatch Point of Care Testing Glucose POC 120 Urine Dip Bedside Urine Glucose Negative Bedside Urine Bilirubin - Negative Bedside Urine Ketone - Negative Urine Specific [place] 1.000 Bedside Urine Occult Blood - Negative Bedside Urine pH 6 Bedside Urine Protein - Negative Bedside Urine Urobilinogen +/- 1mg Bedside Urine Nitrite - Negative Bedside Urine Leukocytes - Negative Esterase Imaging Data CT scan - abdomen/pelvis: Radiologist's Impressoin: PROCEDURE: CT ANGIO ABD/PEL GI BLEED INDICATIONS: Alcohol gi bleeding TECHNIQUE: After the administration of intravenous contrast, 2.5 mm thick sections acquired from the diaphragm to the symphysis. 10 mm maximum-intensity projection (MIP) reformats were then acquired. For radiation dose reduction, the following was used: automated exposure control. COMPARISON: [facility], CT, CT ABDOMEN PELVIS WITH CONTRAST, 10/23/2024, 10:07. FINDINGS: Image Quality: Diagnostic. OTHER: Lower Chest: No significant findings. Liver: Hepatomegaly with evidence of cirrhosis. Severe hepatic steatosis Area of decreased attenuation near the gallbladder fossa which may reflect geographic fatty infiltration liver however in sending cirrhosis consider MRI to delineate possible mass. Gallbladder: No radiopaque gallstones or wall thickening. Biliary ducts: No biliary dilation. Pancreas: No ductal dilation. Spleen: Splenomegaly. Adrenal Glands: No adrenal nodules. Kidneys and Ureters: Left nonobstructive stone measuring 4 mm. No hydronephrosis or solid mass. Stomach and Bowel: Normal colonic caliber, without significant wall thickening. The colon is predominantly decompressed with numerous colonic diverticula. Diffuse fatty infiltration of the colonic parra and fatty infiltration of the terminal ileum. Peritoneum: No abnormal intraperitoneal fluid. No free air. Ventral Wall: No hernia. Abdominal Nodes: No retroperitoneal or mesenteric adenopathy by size criteria. Vessels: Aorta and inferior vena cava are normal in size. PELVIS: Pelvic Organs: Unremarkable. Bladder: Unremarkable. Pelvic Nodes: No enlarged lymph nodes. Miscellaneous: No inguinal hernias are seen. Bones: No aggressive osseous abnormality. IMPRESSION: 1. No extravasation of contrast or source of GI bleed is identified. 2. Long segment of colonic wall thickening likely exaggerated by underdistention. Correlate for colitis. With fatty infiltration of the colon wall and with extension of the fatty infiltration seen to the terminal ileum, correlate for colitis or chronic inflammatory bowel disease. 3. Hepatosplenomegaly with questionable geographic fatty infiltration near the gallbladder fossa. Consider MRI for further delineation to exclude underlying mass. 4. Nonobstructive left renal stone. Dictated by: Bakari Kim M.D. on 02/07/2025 at 12:16 Chest x-ray: Radiologist's Impressoin: PROCEDURE: XR CHEST 1V INDICATIONS: chest pain TECHNIQUE: One view of the chest was acquired. COMPARISON: None. FINDINGS: Surgical changes and devices: None. Lungs and pleura: Lungs are clear. No pleural effusions or pneumothorax. Mediastinum: Mediastinal contours appear normal. Heart size is normal. Bones and chest wall: No suspicious bony lesions. Overlying soft tissues appear unremarkable. IMPRESSION: No acute cardiopulmonary abnormality is seen. Dictated by: Bakari Kim M.D. on 02/07/2025 at 10:53 Approved by: Bakari Kim M.D. on 02/07/2025 at 10:54 ECG Data Attestation: I personally reviewed and interpreted this ECG as follows: Prior ECG tracings: available for review Interpretation: Sinus rhythm rate 114 ND interval 122 QRS [address] changes dull peaked T-waves MDM Narrative Medical decision making narrative: MDM CC: Alcohol use vomiting blood Complicating co-morbidities: Alcohol use disorder Data collected from: Patient Medical records reviewed: Previous ED visits 1 year ago 12/25/2023 here for constipation had blood work and CT at that time. Differential considered: Jumana-Kemp tear, variceal bleeding, alcoholic gastritis Exam documented above, pertinent findings include: Alert 34-year-old male abdomen is soft nontender no active bleeding guaiac-positive Lab Test results independently reviewed as above. Pertinent findings: CBC shows anemia hemoglobin 7.6 hematocrit 22.3 leukocytosis of 16.9 Hyponatremia with a sodium of 129 normal potassium carbon dioxide 19 BUN 27 creatinine 0.68 glucose 138 Lactate is 3.8--> Bilirubin 1.4, AST 81 ALT 53 which all down from prior previously bilirubin is 4.9 AST 272 ALT is 102 with alk-phos of 300 Troponin negative Independently reviewed EKG as above Sinus tachycardia Imaging studies independently reviewed: CT angio no active bleeding or extravasation however does show hepatomegaly evidence of cirrhosis severe hepatic steatosis. Possible colitis Consultations: 1420 Dr. Lopez surgery updated on patient's symptoms test results recommends that if this is a variceal bleed patient needs to be transferred we have no way of treating this 1430 GI at [facility] updated on patient's symptoms test results reports that they do not have Interventional Radiology and not able to help. 15[address] Dr Beckwith, [facility] recommends that patient be transferred 1615 Dr. Reyes, accepts patient Treatments: Protonix 80mg, 2 packed red blood cells, 1L of fluid, Ativan, octreotide bolus / drip Re-evaluations: Patient is not having any further hematemesis but did have a bloody bowel Discussion: Patient 34-year-old male history of alcohol abuse presenting with bright red blood hematemesis. No active bleeding or vomiting now. He is guaiac positive. Found to be anemic with hemoglobin 7.6 hematocrit 22. He is prophylactically started on octreotide and Protonix transfusing blood due to tachycardia and hypotensive. Unfortunately not able to cares for potential variceal bleeding at this hospital and will need higher level of care. Critical Care Time Critical Care Time Attestation: The high probability of a clinically significant, sudden or life threatening deterioration of the [cardiovascular] system(s) required my full and direct attention, intervention and personal management. The aggregate critical care time was [45] minutes. This time is in addition to time spent performing reported procedures but includes the following: [x] Data Review and interpretation [x] Patient assessment and monitoring of vital signs [x] Documentation [x] Medication orders and management Discharge Plan Departure Patient Disposition: [facility] Clinical Impression: GI bleed, Alcohol use disorder Prescriptions: No Action benzonatate [Tessalon Perles] 100 mg capsule 100 mg PO BID PRN (Reason: cough) Qty: 20 0RF albuterol sulfate 90 mcg/actuation HFA aerosol inhaler 2 puff inhalation Q6H PRN (Reason: shortness of breath or wheezing) Qty: 6.7 0RF albuterol sulfate 90 mcg/actuation HFA aerosol inhaler 1 puff inhalation Q6H PRN (Reason: shortness of breath or wheezing) Qty: 8.5 11RF hydroxyzine HCl 25 mg tablet 25 mg PO BID PRN (Reason: anxiety) Qty: 30 0RF
[2025-02-07 11:58] LABS: Acetaminophen < 10 ug/mL (10-30); Ethanol (ETOH) 25 mg/dL (<10); Salicylate < 1.0 mg/dL (<20)
[2025-02-07 11:59] LABS: Alanine Aminotransferase 53 IU/L (<50); Albumin 3.2 g/dL (3.5-5.0); Albumin Globulin Ratio 1.1 (1.0-2.8); Alkaline Phosphatase 62 U/L (38-126); Blood Urea Nitrogen 27 mg/dL (9-20); Calcium 8.3 mg/dL (8.4-10.2); Chloride 99 mmol/L (98-107); Estimated Glomerular Filt Rate > 60 mL/min (>60); Globulin 2.9 g/dL (1.7-4.1); Glucose 138 mg/dL (70-99); HEMOLYSIS 20 (0-50); Lipase 67 U/L (23-300); Magnesium 1.7 mg/dL (1.6-2.3); Potassium 4.0 mmol/L (3.4-5.1); Sodium 129 mmol/L (137-145); Total Protein 6.1 g/dL (6.3-8.2)
--- NOTE | 2025-02-07 12:00 | DI.CT.S_ITS ---
PROCEDURE: CT ANGIO ABD/PEL GI BLEED INDICATIONS: Alcohol gi bleeding TECHNIQUE: After the administration of intravenous contrast, 2.5 mm thick sections acquired from the diaphragm to the symphysis. 10 mm maximum-intensity projection (MIP) reformats were then acquired. For radiation dose reduction, the following was used: automated exposure control. COMPARISON: [facility], CT, CT ABDOMEN PELVIS WITH CONTRAST, 10/23/2024, 10:07. FINDINGS: Image Quality: Diagnostic. OTHER: Lower Chest: No significant findings. Liver: Hepatomegaly with evidence of cirrhosis. Severe hepatic steatosis Area of decreased attenuation near the gallbladder fossa which may reflect geographic fatty infiltration liver however in sending cirrhosis consider MRI to delineate possible mass. Gallbladder: No radiopaque gallstones or wall thickening. Biliary ducts: No biliary dilation. Pancreas: No ductal dilation. Spleen: Splenomegaly. Adrenal Glands: No adrenal nodules. Kidneys and Ureters: Left nonobstructive stone measuring 4 mm. No hydronephrosis or solid mass. Stomach and Bowel: Normal colonic caliber, without significant wall thickening. The colon is predominantly decompressed with numerous colonic diverticula. Diffuse fatty infiltration of the colonic parra and fatty infiltration of the terminal ileum. Peritoneum: No abnormal intraperitoneal fluid. No free air. Ventral Wall: No hernia. Abdominal Nodes: No retroperitoneal or mesenteric adenopathy by size criteria. Vessels: Aorta and inferior vena cava are normal in size. PELVIS: Pelvic Organs: Unremarkable. Bladder: Unremarkable. Pelvic Nodes: No enlarged lymph nodes. Miscellaneous: No inguinal hernias are seen. Bones: No aggressive osseous abnormality. IMPRESSION: 1. No extravasation of contrast or source of GI bleed is identified. 2. Long segment of colonic wall thickening likely exaggerated by underdistention. Correlate for colitis. With fatty infiltration of the colon wall and with extension of the fatty infiltration seen to the terminal ileum, correlate for colitis or chronic inflammatory bowel disease. 3. Hepatosplenomegaly with questionable geographic fatty infiltration near the gallbladder fossa. Consider MRI for further delineation to exclude underlying mass. 4. Nonobstructive left renal stone. Dictated by: Bakari Kim M.D. on 02/07/2025 at 12:16 Approved by: Bakari Kim M.D. on 02/07/2025 at 12:27
[2025-02-07 12:02] LABS: Carbon Dioxide 19 mmol/L (22-32)
[2025-02-07 12:10] LABS: Troponin I < 0.012 ng/mL (0.01-0.034)
[2025-02-07] MEDS: SODIUM CHLORIDE 0.9% 1,000 ML 1000 ML IV (12:14)
[2025-02-07] MEDS: OCTREOTIDE 500 MCG in SODIUM CHLORIDE 0.9% 100 ML 5.05 MCG IV (12:16)
[2025-02-07] MEDS: OCTREOTIDE 100 MCG/ML VIAL 50 MCG IV (12:18)
[2025-02-07] MEDS: PANTOPRAZOLE 40 MG VIAL 80 MG IV (12:19)
[2025-02-07 12:41] LABS: Lactate (Lactic Acid) 3.8 mmol/L (0.7-2.1)
[2025-02-07 14:00] LABS: Reflexed Lactate in 2 Hours Y
[2025-02-07 14:43] LABS: UR Morphine/Opiate cutoff 300 Negative (Negative); Ur Specific Gravity Normal (Normal); Urine MDMA Negative (Negative); Urine Methamphetamines Negative (Negative); Urine Tetrahydrocannabinol Positive (Negative); Urine Tricyclic Antidepressant Negative (Negative)
[2025-02-07 14:43] LABS: Lactate 2HR (Lactic Acid Rflx) 2.6 mmol/L (0.7-2.1)
[2025-02-07 14:46] LABS: INR 1.7 (0.9-1.3); Prothrombin Time 19.3 SECONDS (9.4-12.5)
[2025-02-07 14:48] LABS: PTT Partial Thromboplastin Tim 23 SECONDS (25.1-36.5)
[2025-02-07] MEDS: LACTATED RINGERS 1,000 ML 1000 ML IV (23:12)
[2025-02-08] VITALS (14 sets, daily range): BP systolic 97–130; BP diastolic 55–63; PULSE 94–104; RESP 12–23; O2SAT 84–99
[2025-02-08 01:39] LABS: Lactate (Lactic Acid) 1.3 mmol/L (0.7-2.1)
[2025-02-08] MEDS: MORPHINE 4 MG/ML INJ IV (03:22)
[2025-02-08] MEDS: NALOXONE 4 MG NASAL SPRAY MISC (03:23)
[2025-02-08] MEDS: OCTREOTIDE 500 MCG in SODIUM CHLORIDE 0.9% 100 ML 5.05 MCG IV (03:23)
== END 2025-02-08 04:19 | disposition short-term general hospital (02) ==
PROVIDERS: Emergency Provider Emergency Medicine
DX: K92.2 Gastrointestinal hemorrhage, unspecified (principal); F10.10 Alcohol abuse, uncomplicated; Y90.1 Blood alcohol level of 20-39 mg/100 ml; D64.9 Anemia, unspecified; R00.0 Tachycardia, unspecified; I95.9 Hypotension, unspecified
CPT/HCPCS: 36415; 36430; 71045; 74174; 80053; 80305; 80320; 80329; 81003; 82962; 83605; 83690; 83735; 84484; 85025; 85610; 85730; 86850; 86900; 86901; 93005; 96365; 96366; 96375; 96376; 99285; 99291; P9016; A9270; G0480; J2060; J2272; J2354; J2470; J2560; J7030; J7050; J7120; Q9967